=== PATIENT | female | born 1995 | race American Indian/Alaskan Native ===

== ENCOUNTER 2021-10-16 10:17 | Emergency (ER) | payer OTHER ==
[2021-10-16] MEDS ORDERED: LIDOCAINE-MPF (1%) 10 MG/1 ML VIAL 5 ML INFILTRATI ONE (10:46)
[2021-10-16] MEDS ORDERED: AZITHROMYCIN 1 GM ORAL PWDR PACKET PO ONE (10:46)
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
[2021-10-16 11:58] LABS: Basophils % (Auto) 0.8 % (0.0-1.8); Eosinophils % (Auto) 0.3 % (0.0-4.3); Lymphocytes % (Auto) 34.9 % (13.4-35.0); Mean Corpuscular HGB Conc 33 % (30-34); Mean Corpuscular Volume 83 fl (79-97); Monocytes # (Auto) 0.5 K/mm3 (0.0-0.8); Monocytes % (Auto) 8.4 % (0.0-7.3); Platelet Count 271 K/mm3 (140-440); Red Blood Count 5.05 M/mm3 (3.65-5.03); Red Cell Distribution Width 14.2 % (13.2-15.2)
[2021-10-16 12:37] LABS: Blood Urea Nitrogen 7 mg/dL (7-17); Calcium 9.1 mg/dL (8.4-10.2); Hemolysis Index 7
[2021-10-16 12:40] LABS: BUN/Creatinine Ratio 12
[2021-10-16 13:28] VITALS: BP 120/75
== END 2021-10-16 13:00 | disposition hospice, inpatient (51) ==
LOC: ED 10:17
DX: R10.32 Left lower quadrant pain (principal); Y93.89 Activity, other specified; Y92.89 Other specified places as the place of occurrence of the external cause; Y99.8 Other external cause status; Y08.89XA Assault by other specified means, initial encounter
CPT/HCPCS: 36415; 80048; 84703; 85025; 96372; 99283; J0696; J3490